=== PATIENT | female | born 1990 | race African-American/Black ===

== ENCOUNTER 2021-04-05 02:46 | Inpatient (IN) ==
[2021-04-05] MEDS ORDERED: MEPERIDINE 50 MG/1 ML VIAL IV PRN (02:55)
[2021-04-05] MEDS ORDERED: ONDANSETRON 4 MG/2 ML VIAL IV PRN ×2 (02:55→06:34)
[2021-04-05] MEDS ORDERED: BUTORPHANOL 2 MG/ML VIAL IV PRN (02:55)
[2021-04-05] MEDS ORDERED: diphenhydrAMINE 50 MG/1 ML VIAL IV PRN (03:03)
[2021-04-05] MEDS ORDERED: FAMOTIDINE 20 MG/2 ML VIAL IV ONE (03:05)
[2021-04-05] MEDS ORDERED: CITRIC ACID/SODIUM CITRATE 30 ML UDCUP PO ONE (03:05)
[2021-04-05] MEDS ORDERED: ePHEDrine 50 MG/ML VIAL IV ONE (03:06)
[2021-04-05] MEDS: LACTATED RINGERS 1,000 ML IV SCH ×2 (03:09→04:02)
[2021-04-05] MEDS ORDERED: fentaNYL 2 MCG/ROPIV 0.2% EPID 100 ML EPIDURAL SCH (03:30)
[2021-04-05] MEDS: CLINDAMYCIN INJ 900 MG/50 ML PREMIX IV SCH ×3 (03:31→19:10)
[2021-04-05 03:34] LABS: Basophils % 0.1 % (0.0-0.8); Eosinophils % 0.4 % (0.00-10.9); Hematocrit 34.7 VOL% (35.7-47.0); Hemoglobin 11.2 GM/DL (12.0-16.0); Immature Granulocytes % 1.1 %; Immature Granulocytes Absolute 0.11 #; Lymphocytes # 1.3 10*3/uL (1.4-4.0); Lymphocytes % 12.9 % (21.3-54.2); Mean Corpuscular HGB Conc 32.3 GM/DL (32-36); Mean Corpuscular Volume 90.6 FL (87-102); Mean Platelet Volume 11.8 FL (9.6-12.0); Monocytes % 6.3 % (1.7-12.7); Neutrophils % 79.2 % (38.7-73.9); Platelet Count 172 T/CUMM (130-400); Red Blood Count 3.83 MC/CUMM (3.8-5.5); Red Cell Distribution Width 14.2 % (9.3-17.3); White Blood Count 9.7 T/CUMM (4-12)
[2021-04-05 03:49] LABS: Albumin 2.3 G/DL (3.4-5.0); Bilirubin,Total 0.4 MG/DL (0.20-1.00); Calcium 8.9 MG/DL (8.5-10.1); Osmolality,Calculated 269.8 MOS/KG (273-304); Potassium 3.6 MMOL/L (3.5-5.1); Total Protein 6.9 G/DL (6.4-8.2)
[2021-04-05 03:50] LABS: Hypochromasia Slight
[2021-04-05 04:51] LABS: Rubella Antibody IgG Result Reactive (NonReactive)
[2021-04-05 04:52] LABS: Hepatitis B Surface Ab Result Non-Reactive (NonReactive)
[2021-04-05 04:56] LABS: HIV Antigen/Antibody Result Nonreactive (Nonreactive)
[2021-04-05 05:23] LABS: Bacteria,Urine Occasional /HPF (Few); Bilirubin,Urine Negative (Negative); Blood, Urine Negative (Negative); Glucose,Urine (UA) Negative (Negative); Ketones,Urine Negative (Negative); Mucus,Urine Occasional /LPF (Occasional); Nitrite,Urine Negative (Negative); Protein,Urine Negative; RBC,Urine 1 /HPF (0-4); Squamous Epithelial Cell,Urine Occasional /HPF (0-10); Urine Appearance Slightly Hazy (Clear); Urine Color Yellow (Yellow); Urine Specific Gravity 1.003 (1.001-1.035); Urine Urobilinogen < 2.0 EU/DL (0.2-1.0)
[2021-04-05] MEDS ORDERED: TRANEXAMIC ACID 1,000 MG/10 ML VIAL ONE (05:55)
[2021-04-05] MEDS ORDERED: OXYTOCIN/LR 20 UNIT/1,000 ML BAG IV ONE ×2 (05:55→06:34)
[2021-04-05] MEDS ORDERED: METHYLERGONOVINE 0.2 MG/1 ML AMP ONE (05:55)
[2021-04-05] MEDS ORDERED: miSOPROStoL 200 MCG TABLET ONE ×2 (05:55→05:56)
[2021-04-05] MEDS ORDERED: CARBOPROST TROMETHAMINE 250 MCG/ML AMP IM ONE (05:56)
[2021-04-05] MEDS ORDERED: SODIUM CHLORIDE 0.9% 0 ML IV ONE (05:56)
[2021-04-05 06:28] LABS: Cord Venous Blood HCO3 20.8 MMOL/L; Cord Venous Blood PCO2 56.2 MMHG; Cord Venous Blood PO2 < 17
[2021-04-05 06:33] LABS: Cord Arterial Blood HCO3 25.2 MMOL/L
[2021-04-05] MEDS ORDERED: oxyCODONE/ACETAMINOPHEN 5-325 MG TABLET PO PRN (06:34)
[2021-04-05] MEDS ORDERED: BENZOCAINE 20%/MENTHOL 0.5% SPRAY 56 GM CAN TOP PRN (06:34)
[2021-04-05] MEDS ORDERED: ACETAMINOPHEN 325 MG TABLET PO PRN (06:34)
[2021-04-05] MEDS ORDERED: DIPH/TET/ACEL PERT BOOSTER VACCINE 0.5 ML VIAL IM ONE (06:34)
[2021-04-05] MEDS ORDERED: WITCH HAZEL PADS 100/JAR TOP PRN (06:34)
[2021-04-05] MEDS ORDERED: MEASLES/MUMPS/RUBELLA VACCINE 0.5 ML VIAL SUBCUT ONE (06:34)
[2021-04-05] MEDS ORDERED: BISACODYL 10 MG SUPP RECTAL PRN (06:34)
[2021-04-05] MEDS ORDERED: RHO(D) IMMUNE GLOBULIN 300 MCG SYRINGE IM ONE (06:34)
[2021-04-05] MEDS ORDERED: LANOLIN 50% CREAM 0.3 OZ TUBE TOP PRN (06:34)
[2021-04-05] MEDS ORDERED: HYDROCORTISONE 2.5% RECTAL CREAM 30 GM TUBE TOP PRN (06:34)
[2021-04-05 07:23] LABS: Barbiturates Screen,Urine Negative (Negative); Benzodiazepines Screen,Urine Negative (Negative); Cannabinoid Screen,Urine Positive (Negative); Opiate Screen,Urine Negative (Negative); Phencyclidine Screen,Urine Negative (Negative)
[2021-04-05] MEDS: oxyCODONE/ACETAMINOPHEN 5-325 MG TABLET PO PRN ×2 (11:08→18:40)
[2021-04-05] MEDS: DOCUSATE SODIUM 100 MG CAPSULE PO SCH (21:59)
[2021-04-06] MEDS: oxyCODONE/ACETAMINOPHEN 5-325 MG TABLET PO PRN ×3 (01:24→20:41)
[2021-04-06] MEDS: diphenhydrAMINE CAP 25 MG CAPSULE PO PRN ×2 (01:24→20:41)
[2021-04-06] MEDS: CLINDAMYCIN INJ 900 MG/50 ML PREMIX IV SCH (03:33)
[2021-04-06 05:14] LABS: Basophils % 0.4 % (0.0-0.8); Eosinophils # 0.1 10*3/uL (0.0-0.87); Eosinophils % 1.2 % (0.00-10.9); Hematocrit 33.1 VOL% (35.7-47.0); Hemoglobin 10.5 GM/DL (12.0-16.0); Immature Granulocytes % 1.7 %; Immature Granulocytes Absolute 0.14 #; Lymphocytes # 1.9 10*3/uL (1.4-4.0); Lymphocytes % 23.5 % (21.3-54.2); Mean Corpuscular HGB Conc 31.7 GM/DL (32-36); Mean Corpuscular Volume 91.7 FL (87-102); Mean Platelet Volume 11.3 FL (9.6-12.0); Monocytes % 8.3 % (1.7-12.7); Neutrophils % 64.9 % (38.7-73.9); Platelet Count 144 T/CUMM (130-400); Red Blood Count 3.61 MC/CUMM (3.8-5.5); Red Cell Distribution Width 14.6 % (9.3-17.3); White Blood Count 8.1 T/CUMM (4-12)
[2021-04-06] MEDS: DOCUSATE SODIUM 100 MG CAPSULE PO SCH ×2 (08:46→20:41)
[2021-04-06] MEDS: CLINDAMYCIN 300 MG CAPSULE PO SCH ×2 (14:44→20:41)
[2021-04-07 08:23] VITALS: BP 141/86
[2021-04-07] MEDS: DOCUSATE SODIUM 100 MG CAPSULE PO SCH (08:50)
[2021-04-07] MEDS: CLINDAMYCIN 300 MG CAPSULE PO SCH (08:50)
== END 2021-04-07 14:01 | disposition home or self-care (01) | DRG 560 ==
LOC: N.LDOUT 02:46 → N.LD 02:52 → N.OB 09:40
PROVIDERS: ADMIT Student in an Organized Health Care Education/Training Program; ATTEND Student in an Organized Health Care Education/Training Program